=== PATIENT | male | born 1995 | race Caucasian/White ===

== ENCOUNTER 2024-10-28 16:51 | Observation (INO) | payer MEDICAID, SELFPAY ==
[2024-10-28] VITALS (7 sets, daily range): BP systolic 127–141; BP diastolic 69–92; PULSE 62–84; RESP 12–18; TEMP 36.9–37.2; O2SAT 99–100; BMI 31.4; BMI 32.1
--- NOTE | 2024-10-28 17:08 | PD.EDRME ---
Rapid Medical Screening Exam RME Arrival date/time: 10/28/24 16:51 29-year-old male presents for concerns for right sided abd pain Chief Complaint: Abdominal Pain Time Seen by Provider: 10/28/24 17:03 Vital signs: Vital Signs Temperature 98.9 F 10/28/24 17:04 Pulse Rate 80 10/28/24 17:04 Respiratory Rate 18 10/28/24 17:04 Blood Pressure 133/84 H 10/28/24 17:04 Pulse Oximetry (%) 100 10/28/24 17:04 Oxygen Delivery Method Room Air 10/28/24 17:04
[2024-10-28 17:20] LABS: Basophils % (Auto) 0 % (0-2.5); Eosinophils % (Auto) 0 % (0-10); Hematocrit 44.5 % (41.0-53.0); Hemoglobin 15.6 g/dL (13.5-16.0); Immature Granulocytes % (Auto) 0 % (0-0); Immature Granulocytes Auto 0.05 Thou/mm3 (0.00-0.00); Lymphocytes # (Auto) 2.2 Thou/mm3 (1.0-4.8); Lymphocytes % (Auto) 14 % (10-50); Mean Corpuscular HGB Conc 35.1 g/dl (31.0-37.0); Mean Corpuscular Hemoglobin 27.3 pg (25.0-35.0); Mean Corpuscular Volume 78 fL (80-100); Monocytes # (Auto) 1.1 Thou/mm3 (0.0-0.8); Monocytes % (Auto) 7 % (0-12); Neutrophils # (Auto) 13.1 Thou/mm3 (1.8-7.7); Neutrophils % (Auto) 79 % (37-80); Nucleated Red Blood Cell % 0 /100 WBC (0); Platelet Count 246 Thou/mm3 (140-440); RDW Standard Deviation 35.7 fL (35.1-43.9); Red Blood Count 5.71 Miln/mm3 (4.50-5.90); White Blood Count 16.5 Thou/mm3 (3.8-10.6)
[2024-10-28 17:52] LABS: Alanine Aminotransferase 28 U/L (10-49); Albumin, Serum 4.6 gm/dL (3.5-5.0); Albumin/Globulin Ratio 1.5 (1.2-2.2); Alkaline Phosphatase 48 U/L (46-116); Anion Gap 11 (7-16); Aspartate Amino Transferase 19 U/L (0-34); BUN/Creatinine Ratio 14 Ratio (12-20); Blood Urea Nitrogen 14 mg/dL (9-23); Calcium 9.6 mg/dL (8.3-10.6); Calcium (Corrected) 9.6 mg/dL (8.5-10.1); Carbon Dioxide 23.5 mMol/L (20.0-31.0); Chloride 103 mMol/L (98-107); Estimated Creatinine Clearance 147.2 mL/min (>60); Globulin 3.1 gm/dL (2.3-3.5); Glucose 102 mg/dL (74-106); Osmolality,Calculated 274 (275-295); Potassium 3.6 mMol/L (3.4-5.1); Sodium 137 mMol/L (136-145); Total Protein 7.7 gm/dL (5.7-8.2); eGFR > 60 See Note
[2024-10-28 18:04] LABS: Lipase 27 U/L (12-53)
[2024-10-28 18:36] LABS: Collection Type, Urine Clean Catch; RBC,Urine 0 /hpf (0-3); Squamous Epithelial Cell,Urine 0 /hpf (0-5); WBC,Urine 0 /hpf (0-5)
[2024-10-28 18:50] LABS: Bilirubin,Urine Negative (Negative); Blood,Urine Negative (Negative); Clarity,Urine Turbid (Clear/Hazy); Color,Urine Yellow (Lt Yel-Yel); Culture Indicated,Urine Not Indicated; Glucose, Urine Negative (Negative); Ketones,Urine 3+ (Negative); Leukocyte Esterase,Urine Negative (Negative); Nitrite,Urine Negative (Negative); PH,Urine 8.5 (5.0-7.0); Protein,Urine 1+ (Neg - Trace); Specific Gravity,Urine 1.031 (1.001-1.035); Urobilinogen,Urine Negative mg/dL (0.0-1.0)
--- NOTE | 2024-10-28 19:19 | XR_ITS ---
Examination: CT abdomen and pelvis without contrast. Coronal 3-D reconstructions. Sagittal 2-D reconstructions. Date and time of exam:October 28, 2024 1926 hrs. Indications: Abdominal pain nausea vomiting constipation today CTDI: vol (mGy): 9.65 DLP: (mGycm): 663 Technique: Axial images of the abdomen have been obtained, 3 mm slice thickness Intravenous contrast material has not been administered. Low dose protocols were performed. One or more of the following dose reduction techniques were used; automated exposure control, adjustment of the mA and/or KV according to patient size, use of iterative reconstruction technique. Findings: Fatty infiltration throughout the liver with mildly irregular liver contour Hepatomegaly 18 cm fatty infiltration Mild splenomegaly AP dimension 13 cm No gallstones noted No pancreatic or adrenal mass No renal or ureteral calculi, no hydronephrosis Aorta normal size No bowel obstruction Fluid-filled inflamed enlarged appendix medial to the cecum, coronal image 86 through 63 No pelvic abscess Bladder intact Urinary bladder intact Impression: Hepatosplenomegaly Acute appendicitis, no pelvic abscess
--- NOTE | 2024-10-28 19:21 | EDNOTE_ITS ---
ED Abdominal Pain RME/HPI General Chief Complaint: Abdominal Pain Stated complaint: RIGHT LOWER ABD PAIN, NAUSEA AND VOMITING Time seen by provider: 10/28/24 17:03 Arrival date/time: 10/28/24 16:51 RME / HPI RME / HPI narrative: 10/28/24 16:51 29-year-old male presents for concerns for right sided abd pain This section includes all my notes and documentations, including HPI, PE, and ED course. Len Metzger MD HPI: 29 year old with RLQ abdominal pain since last night. With nausea and decreased oral intake. No oral intake since last night. No other complaints. ROS: All negative except as documented in HPI. Physical Exam: General: Alert and oriented. In obvious pain. Eyes: Conjunctivae and lids clear. ENT: No nasal congestion. Neck: Supple. Heart: RRR. Lungs: No respiratory distress. Good air movement. No rhonchi, wheezing, rales. Abdomen: Soft with RLQ tenderness. Legs: No clubbing, cyanosis, edema. Skin: Warm and dry. Neuro: Alert and oriented X 3. I reviewed all diagnostic test results. My review of the CT abdomen pelvis report is acute appendicitis. Blood tests and urine tests remarkable for WBC 11.5. At this point, diagnoses include acute appendicitis. Treatment here included Tylenol with Codeine, Zofran, Toradol, Dilaudid, Zosyn, and NS. I discussed the case with our surgeon. About the presentation and exam and diagnostics and treatments here. And need of further care in the hospital. Will accept the patient. Len Metzger MD Related Data Previous Rx's ?Medication ?Instructions ?Recorded hydrocodone 5 mg-acetaminophen 325 1 tab PO Q6H PRN pa in #20 tabs 10/29/24 mg tablet Allergies Allergy/AdvReac Type Severity Reaction Status Date / Time No Known Allergies Allergy Verified 10/28/24 22:24 Review of Systems Review of Systems Systems Reviewed: All systems reviewed, normal except as documented Past Medical History Social History SMOKING STATUS: Never smoker ED Exam Narrative Physical exam: As noted in HPI. Course Quality Measures none Orders Category Date Time Status CT Screening NOW Care 10/28/24 17:07 Completed Saline [Insert IV] NOW Care 10/28/24 20:04 Completed Consult to General Surgery Stat Cons 10/28/24 20:[address] abdomen pelvis wo con Stat Exams 10/28/24 19:19 Completed CBC Stat Lab 10/28/24 17:14 Completed Comprehensive Metabolic Panel Stat Lab 10/28/24 17:14 Completed Lipase Stat Lab 10/28/24 17:14 Completed UA, C/S IF [Urinalysis, C/S if Indicated] Stat Lab 10/28/24 18:15 Completed ACETAMINOPHEN w/COD 300-30 [Tylenol w/Cod #3] Med 10/28/24 19:19 Discontinued 2 tab PO X1 ONE HYDROmorphone INJ [Dilaudid Inj] Med 10/28/24 20:04 Discontinued 1 mg IVP X1 ONE Ketorolac Inj [Toradol Inj] Med 10/28/24 20:04 Discontinued 30 mg IVP X1 ONE Ondansetron Inj [Zofran Inj] Med 10/28/24 20:04 Discontinued 4 mg IV X1 ONE Ondansetron Odt [Zofran Odt] Med 10/28/24 19:19 Discontinued 4 mg PO X1 ONE Piper/Tazo 3.375 gm Premix [Zosyn] Med 10/28/24 20:04 Discontinued 3.375 gm in 50 ml IV X1 Sodium Chloride 0.9% 1000 ml [Ns] 1,000 ml Med 10/28/24 20:04 Discontinued IV 999 mls/hr Vital Signs Vital signs: Vital Signs Temperature 98.9 F 10/28/24 17:04 Pulse Rate 80 10/28/24 17:04 Respiratory Rate 18 10/28/24 17:04 Blood Pressure 133/84 H 10/28/24 17:04 Pulse Oximetry (%) 100 10/28/24 17:04 Oxygen Delivery Method Room Air 10/28/24 17:04 Abdominal Pain MDM Patient data External records reviewed:: [facility] previous records (Per chart review, patient was seen here on 01/09/22 for nausea and vomiting.) Clinical information provided by:: patient Social determinants that could affect healthcare access:: none Patient has the following chronic illnesses:: none How is presenting disease/condition affected by chronic disease/condition?: no chronic disease Evaluation data The following diagnostics were reviewed and interpreted by me:: lab results and radiology exam(s) Lab and/or radiology exams considered but not ordered:: none Interpretation Summary: appendicitis Medications / Prescriptions Medications or Prescriptions considered but not ordered:: none Medication administrations:: Medication Administration History Discontinued Medications Acetaminophen (Acetaminophen 325 Mg Tablet) 650 mg PO Q6HR PRN PRN Reason: [id number] Stop: 11/27/24 23:43 Acetaminophen/Codeine Phosphate (Acetaminophen W/Cod 300-30 Tablet) 2 tab PO X1 ONE Stop: 10/28/24 19:20 Last Admin: 10/28/24 20:52 Dose: Not Given Documented By: EF Non-Admin Reason: Cancelled by Provider Albuterol/Ipratropium (Albuterol/Ipratropium (Duoneb) Rt Rekha 3 Ml Nebu) 3 ml INH Q4HRRT PRN PRN Reason: SHORTNESS OF BREATH Stop: 11/27/24 22:19 Bupivacaine HCl (Bupivacaine Mpf 0.5% 30 Ml Vial) Confirm Administered Dose 30 ml .ROUTE .STK-MED ONE Stop: 10/28/24 21:33 Dexamethasone Sodium Phosphate (Dexamethasone Sod Phos Inj 10 Mg/Ml Vial) Confirm Administered Dose 10 mg .ROUTE .STK-MED ONE Stop: 10/28/24 21:36 Famotidine (Famotidine Inj 10 Mg/Ml Vial 2 Ml) Confirm Administered Dose 20 mg .ROUTE .STK-MED ONE Stop: 10/28/24 21:36 Fentanyl Citrate (Fentanyl Cit Inj 50 Mcg/Ml Amp 2ml) Confirm Administered Dose 100 mcg .ROUTE .STK-MED ONE Stop: 10/28/24 21:24 Fentanyl Citrate (Fentanyl Cit Inj 50 Mcg/Ml Amp 2ml) 50 mcg IV Q5M PRN; Protocol PRN Reason: PAIN SCALE 4-10(Mod-Sev Stop: 10/29/24 00:20 Hydromorphone HCl (Hydromorphone Inj 2 Mg/Ml Vial) 1 mg IVP X1 ONE Stop: 10/28/24 20:05 Last Admin: 10/28/24 20:19 Dose: 1 mg Documented By: EF Hydromorphone HCl (Hydromorphone Inj 2 Mg/Ml Vial) 0.2 mg IV Q5M PRN PRN Reason: PAIN 1-6 (mild-mod Stop: 10/29/24 00:20 Sodium Chloride (Ns) 1,000 mls @ 999 mls/hr IV .Q1H1M ONE Stop: 10/28/24 21:04 Last Infusion: 10/28/24 21:52 Dose: Infused Documented By: Admin: 10/28/24 20:20 Dose: 999 mls/hr Documented By: EF Piperacillin/Tazobactam/Dextrose (Zosyn) 3.375 gm in 50 mls @ 100 mls/hr IV X1 ONE Stop: 10/28/24 20:33 Last Infusion: 10/28/24 20:50 Dose: Infused Documented By: Admin: 10/28/24 20:20 Dose: 100 mls/hr Documented By: EF Acetaminophen (Ofirmev Inj) Confirm Administered Dose 100 mls @ ud IV .STK-MED ONE Stop: 10/28/24 22:04 Sodium Chloride (Ns) 1,000 mls @ 125 mls/hr IV .Q8H MONICA Stop: 11/27/24 23:43 Last Admin: 10/29/24 09:12 Dose: 125 mls/hr Documented By: JOSE CARLOS Infusion: 10/29/24 08:00 Dose: Infused Documented By: JOSE CARLOS Admin: 10/29/24 00:00 Dose: 125 mls/hr Documented By: Piperacillin Sod/Tazobactam (Sod 4.5 gm/ Sodium Chloride) 100 mls @ 200 mls/hr IV Q8HR MONICA Stop: 11/05/24 05:59 Last Admin: 10/29/24 05:29 Dose: 200 mls/hr Documented By: Ketorolac Tromethamine (Ketorolac Inj 30 Mg/Ml Vial) 30 mg IVP X1 ONE Stop: 10/28/24 20:05 Last Admin: 10/28/24 20:20 Dose: 30 mg Documented By: EF Ketorolac Tromethamine (Ketorolac Inj 30 Mg/Ml Vial) Confirm Administered Dose 30 mg .ROUTE .STK-MED ONE Stop: 10/28/24 22:37 Ketorolac Tromethamine (Ketorolac Inj 30 Mg/Ml Vial) 30 mg IVP Q6HR PRN PRN Reason: PAIN 1-6 (mild-mod Stop: 11/02/24 23:43 Morphine Sulfate (Morphine Sulf Inj 10 Mg/Ml Vial) 5 mg IVP Q4HR PRN PRN Reason: PAIN Stop: 11/02/24 23:43 Morphine Sulfate (Morphine Sulf Inj 10 Mg/Ml Vial) 5 mg IVP Q4HR PRN PRN Reason: PAIN SCALE 7-10 (Severe Stop: 11/02/24 23:43 Ondansetron HCl (Ondansetron Odt 4 Mg Tabrap) 4 mg PO X1 ONE; Protocol Stop: 10/28/24 19:20 Last Admin: 10/28/24 20:52 Dose: Not Given Documented By: EF Non-Admin Reason: Cancelled by Provider Ondansetron HCl (Ondansetron Inj 2 Mg/Ml Inj 2 Ml) 4 mg IV X1 ONE; Protocol Stop: 10/28/24 20:05 Last Admin: 10/28/24 20:20 Dose: 4 mg Documented By: EF Ondansetron HCl (Ondansetron Inj 2 Mg/Ml Inj 2 Ml) Confirm Administered Dose 4 mg .ROUTE .STK-MED ONE Stop: 10/28/24 21:36 Ondansetron HCl (Ondansetron Inj 2 Mg/Ml Inj 2 Ml) 4 mg IV X1 ONE Stop: 10/28/24 22:21 Ondansetron HCl (Ondansetron Inj 2 Mg/Ml Inj 2 Ml) 4 mg IV Q4HR PRN PRN Reason: NAUSEA OR VOMITING Stop: 11/27/24 23:43 Propofol (Propofol Inj 10 Mg/Ml Vial 20 Ml) Confirm Administered Dose 200 mg IV .STK-MED ONE Stop: 10/28/24 21:24 Rocuronium [place] (Rocuronium Inj 10 Mg/Ml Vial 10 Ml) Confirm Administered Dose 100 mg .ROUTE .STK-MED ONE Stop: 10/28/24 21:24 Sugammadex Sodium (Sugammadex Inj 100 Mg/Ml 2ml Vial) Confirm Administered Dose 200 mg .ROUTE .STK-MED ONE Stop: 10/28/24 21:36 Tylenol with Codeine, Zofran, Toradol, Dilaudid, Zosyn, NS from dc. Consultations Consultation(s) initiated? (list below): Yes Consultation #1 (Physician, Specialty, Details): Discussed case with Dr. Sims from general surgery regarding consultation. Discussed patients ED course, exam findings, labs, and radiology results. Will admit the patient for surgery. Time: 20:17 Diagnosis Differential diagnosis abdominal pain: acute appendicitis, calculus of kidney, constipation, diverticulitis, pancreatitis and small bowel obstruction Most likely diagnosis given after review of the tests above:: Acute Appendicitis Admission Indicated Admission indicated?: indicated Explain why admission is indicated or not indicated:: appendicitis Admission Request Was there a request for admission?: Yes Admission Attestation Admission request attestation: Discussed case with our surgeon regarding admission. Discussed patients ED course, exam findings, labs, and radiology results. The surgeon agrees to accept the patient for admission. Disposition Plan Disposition Plan: Admit Discharge Plan Plan Patient Disposition: Admit Acute Care w/in Hospital Patient condition on transfer: Stable Problem List Clinical Impression: Appendicitis
[2024-10-28] MEDS: HYDROmorphone INJ 2 MG/ML VIAL 1 MG IVP (20:19)
[2024-10-28] MEDS: PIPER/TAZO 3.375 GM PREMIX 3.375 GM/50 ML BAG IV (20:20)
[2024-10-28] MEDS: SODIUM CHLORIDE 0.9% 1000 ML 1,000 ML 999 ML IV (20:20)
[2024-10-28] MEDS: ONDANSETRON INJ 2 MG/ML INJ 2 ML 4 MG IV (20:20)
[2024-10-28] MEDS: KETOROLAC INJ 30 MG/ML VIAL IVP (20:20)
--- NOTE | 2024-10-28 21:44 | ESHP_ITS ---
HPI Date of Admission 10/28/24 21:02 Chief Complaint Chief Complaint: Patient is admitted with a diagnosis of acute appendicitis HPI Patient is a 29-year-old white male who was in his usual health until yesterday evening when he started having abdominal pain. This pain started initially in the epigastric region and moved down to the right lower quadrant. He had 2 episodes of vomiting. He had a very small bowel movement which was hard. He did not have any fever or chills. He has not had any such pains in the past. His past medical history is essentially unremarkable. Past Medical History Past Medical History NEUROLOGIC: Negative Seizures CARDIAC: Negative Congestive Heart Failure RESPIRATORY: Negative Chronic Obstructive Pulmonary Disease (COPD) GENITOURINARY: Negative Renal Disease ENDOCRINE: Negative Diabetes Mellitus Type 1 or Diabetes Mellitus Type 2 OTHER HISTORY: Negative Blood Transfusions, Blood Transfusion Reaction or Anest hesia Reactions Social History SMOKING STATUS: Never smoker Meds Home Medications and Allergies Allergies Allergy/AdvReac Type Severity Reaction Status Date / Time No Known Allergies Allergy Verified 10/28/24 16:54 Exam Vital Signs Temp Pulse Resp BP Pulse Ox O2 Del Method 98.4 F 84 16 127/92 H 99 Room Air 10/28/24 20:31 10/28/24 20:31 10/28/24 20:31 10/28/24 20:31 10/28/24 20:31 10/28/24 20:31 Narrative Exam Physical examination revealed well-built well-nourished white male who is 6 feet 2 inches tall weighing 245 pounds with BMI of 31.5. His vital signs are normal Routine Abdominal Exam Comments: Abdominal exam showed definite tenderness was right lower quadrant at the McBurney's point with mild guarding Results Results: Laboratory Laboratory Narrative: Patient's laboratory workup WBC of 16,500 with a shift to the left Results: Imaging Imaging narrative: CT scan of the abdomen showed acute appendicitis as per the radiologist even though I could not see the appendix clearly Assessment & Plan Additional Assessment Additional comments: Impression: Acute appendicitis Plan Plan: I advised the patient to undergo either antibiotic therapy or surgery. I told him antibiotic therapy will correct the appendicitis at the present time but he may develop another appendicitis in future including about 20% chance in the next year. Patient wants to go ahead with surgery. The risk of the procedure including bowel injury and injury to the blood vessels as a result of trocar insertion etc. were discussed with the patient. He was told that the patient he may require open appendectomy increase laparoscopic approach fails. He is agreeable and will be taken to the operating room tonight. Patient has been started on Zosyn IV preoperatively Quality Measures Quality Measures none
--- NOTE | 2024-10-28 22:52 | ESOP_ITS ---
Date of Procedure 10/28/24 Pre Op Diagnosis Acute appendicitis Post Op Diagnosis Same Procedure Laparoscopic appendectomy Findings Inflamed appendix medial to the cecum with an exudate but no perforation Procedure Description After the patient was placed in supine position and anesthesia was administered with endotracheal intubation. Abdomen was prepped with ChloraPrep solution and draped in a sterile manner. A timeout was performed and a small incision was made just above the umbilicus. Fascia was cleaned and Veress needle was inser jeny to obtain a pneumoperitoneum up to 15 mmHg. Then I introduced a 12 mm trocar at the umbilicus with a 10 mm camera. Patient was kept in Trendelenburg position with the left lateral tilt. Intra-abdominal organs were visualized and this showed omentum covering the right lower quadrant. A 5 mm trocar was inserted in the right lower quadrant under direct vision and using a laparoscopic Jinny I move the omentum and identified the appendix. Appendix was inflamed in its entire length and was located medial to the cecum. Another 5 mm trocar was inserted in the left lower quadrant under direct vision and using Harmonic selin I dissected the mesoappendix cauterizing the vessels. When the base of the appendix was reached this was stapled using an Endo cutter 35 power shantel. Then the appendix was retrieved through the Endopouch through the umbilical port. Then after irrigating and cleaning the pelvis and the right lower quadrant all the trocars were pulled out and the pneumoperitoneum was let out. Fascia was closed with interrupted 0 Ethibond and then I injected half percent Marcaine with epinephrine for analgesia. Skin was then closed with interrupted 4-0 Monocryl subcu stitches and a Tegaderm dressing was applied. Patient tolerated the procedure well and returned to recovery room in stable condition. Anesthesia GETA Pathology / specimen Other (Inflamed appendix) IVF Infused 300 Estimated Blood Loss 20 Surgeon Kranthi Sims MD Surgical Staff Operation Date: 10/28/24 21:45 Case Staff MULTI DISCIPLINED LANGUAGE ANALYST: Lucila Morales RN First Assistant: Larissa Jeter
--- NOTE | 2024-10-28 22:57 | SUR.PHASEI ---
5107 Patient arrived to recovery resting comfortably in [facility], on oxygen 4L via oxy mask with an oral airway in place, breathing unlabored, vital signs stable, dressing intact to abdomen; dissolvable sutures, gauze, medipore tape, no bleeding noted, report received from Tiana LOPES and Lucila FUNG
--- NOTE | 2024-10-28 23:20 | SUR.PHASEI ---
2320 patient eating ice chips, tolerating well
--- NOTE | 2024-10-28 23:22 | SUR.PHASEI ---
patients mother and brother at bedside with patient
--- NOTE | 2024-10-28 23:35 | SUR.PHASEI ---
2331 Report given to Maureen LOPES, patient meets discharge criteria from recovery, awake and alert talking with staff, breathing unlabored, vital signs stable, denies pain, dressing intact; no bleeding noted, patient eating ice chips; tolerating well, denies nausea. 2335 Patient transported via bed to room 362 without incident, Maureen LOPES promptly arrived in patient room, patient resting comfortably in bed when this technical writer and editor left patients room
[2024-10-29] VITALS: BP 141/77; RESP 14; TEMP 37.1; O2SAT 99
[2024-10-29 01:48] VITALS: PULSE 80; RESP 18; RESP 99
[2024-10-29 04:00] VITALS: BP 98/61; PULSE 52; RESP 16; TEMP 36.1; O2SAT 97
[2024-10-29 05:18] LABS: Basophils % (Auto) 0 % (0-2.5); Eosinophils % (Auto) 0 % (0-10); Hematocrit 42.5 % (41.0-53.0); Hemoglobin 14.4 g/dL (13.5-16.0); Immature Granulocytes % (Auto) 0 % (0-0); Immature Granulocytes Auto 0.03 Thou/mm3 (0.00-0.00); Lymphocytes # (Auto) 1.1 Thou/mm3 (1.0-4.8); Lymphocytes % (Auto) 10 % (10-50); Mean Corpuscular HGB Conc 33.9 g/dl (31.0-37.0); Mean Corpuscular Hemoglobin 27.4 pg (25.0-35.0); Mean Corpuscular Volume 81 fL (80-100); Monocytes # (Auto) 0.2 Thou/mm3 (0.0-0.8); Monocytes % (Auto) 1 % (0-12); Neutrophils # (Auto) 10.1 Thou/mm3 (1.8-7.7); Neutrophils % (Auto) 88 % (37-80); Nucleated Red Blood Cell % 0 /100 WBC (0); Platelet Count 202 Thou/mm3 (140-440); RDW Standard Deviation 37.2 fL (35.1-43.9); Red Blood Count 5.26 Miln/mm3 (4.50-5.90); White Blood Count 11.5 Thou/mm3 (3.8-10.6)
[2024-10-29] MEDS: PIPER/TAZO INJ 4.5 GM in SODIUM CHLORIDE 0.9% (POP) 100 ML IV (05:29)
[2024-10-29 08:00] VITALS: BP 116/73; PULSE 55; RESP 18; TEMP 36.2; O2SAT 96
[2024-10-29] MEDS: SODIUM CHLORIDE 0.9% 1000 ML 1,000 ML 125 ML IV ×2 (09:12)
--- NOTE | 2024-10-29 09:51 | PC.SS ---
Patient Malu Gu is a 29 year old male admitted for Acute Appendicitis. SS met with patient at bedside, patient appeared to be alert and oriented, patient reports he lives at home with his . He reports his father, Keith Gu is his surrogate decision maker [phone]. Prior to admission patient did not utilize any source of DME to assist with ambulation. Choice of pharmacy is [facility], PCP is Juarez Foster. At time of discharge patient will return back home. Patient's family will provide transportation. Next of kin;Father, Keith Gu Discharge Plan Home
--- NOTE | 2024-10-29 09:53 | PD.SURPROG ---
Documentation for date of: 10/29/24 Subjective Subjective Brief History: Patient is a 29-year-old white male who was in his usual health until yesterday evening when he started having abdominal pain. This pain started initially in the epigastric region and moved down to the right lower quadrant. He had 2 episodes of vomiting. He had a very small bowel movement which was hard. He did not have any fever or chills. He has not had any such pains in the past. His past medical history is essentially unremarkable. Narrative: The patient is feeling better after surgery last night. He is able to tolerate clear liquids. Exam Vital Signs Temp Pulse Resp BP Pulse Ox O2 Del Method O2 Flow Rate 97.1 F 55 L 18 116/73 96 Room Air 97 10/29/24 08:00 10/29/24 08:00 10/29/24 08:00 10/29/24 08:00 10/29/24 08:00 10/29/24 08:00 10/29/24 00:00 His vital signs are normal. Routine Abdominal Exam Comments: Abdominal examination is negative Results Results: Laboratory Laboratory Narrative: Laboratory results show WBC returning to normal Assessment & Plan Assessment Additional comments: Impression: Stable postoperative course following laparoscopic appendectomy Plan Plan: We shall discharge patient today and follow him up in my office in 10 days Procedures Procedures Laparoscopic appendectomy
[2024-10-29 11:47] VITALS: BP 105/63; PULSE 54; RESP 18; TEMP 36.1; O2SAT 97
== END 2024-10-29 13:02 | disposition home or self-care (01) ==
LOC: SERX 21:05 → SERHOLD 21:17 → S3NX 10-29 06:26
PROVIDERS: Nurse Practitioner Primary Care; Admitting Provider Surgery; Emergency Provider Emergency Medicine; PCP Family Medicine; Visit Provider Surgery
PROC: 0DTJ4ZZ Resection of Appendix, Percutaneous Endoscopic Approach (ICD-10-PCS; CPT 44970; principal; 2024-10-28 21:30)
DX: K35.80 Unspecified acute appendicitis (principal)
CPT/HCPCS: 44970; 36415; 74176; 80053; 81001; 83690; 85025; 96361; 96365; 96375; 99285; A4217; A4649; C1713; G0378; J0131; J1100; J1885; J2405; J2543; J2704; J3010; J3490; J7030